=== PATIENT | female | born 1995 | race Caucasian/White ===

== ENCOUNTER 2024-12-05 14:00 | Emergency (ER) | payer OTHER, SELFPAY ==
--- OUTSIDE RECORDS SUMMARY | 2024-12-05 14:02 | XMS_ITS | Patient Health Record ---
Author Organization [employer] Address [address] [facility] [address] Harris. [address] [place] [address] Care Team Providers Care Washing And Screening Plant Supervisor Name Role Phone Tolu Banuelos Unavailable [phone] Jossie Jara Unavailable [phone] Allergies No Known Allergies Results Component Value Reference Range Notes CBC With Differential/Platel et Reviewed date:07/21/2024 12:07:46 PM Interpretation: Performing Lab:FRANCISCO, [employer] Culture Communication[place] [address] [address] , [place] [id number] [facility] Notes/Report: NON-FASTING; NON-FASTING; NON-FASTING; NON-FASTING; NON-FAST FASTING:NO COLLECTION KIT GIVEN TO PATIENT. PATIENT ADVISED FASTING: NO WHITE BLOOD CELL COUNT 8.7 3.8-10.8 Thousand/ uL RED BLOOD CELL COUNT 4.47 3.80-5.10 Million/uL HEMOGLOBIN 13.9 11.7-15.5 g/dL HEMATOCRIT 41.0 35.0-45.0 % MCV 91.7 80.0-100.0 fL MCH 31.1 27.0-33.0 pg MCHC 33.9 32.0-36.0 g/dL For adults, a slight decrease in the calculated MCHC value (in the range of 30 to 32 g/dL) is most likely not clinically significant; however, it should be interpreted with caution in correlation with other red cell parameters and the patient's clinical condition. RDW 12.8 11.0-15.0 % PLATELET COUNT 356 140-400 Thousand/uL MPV 9.2 7.5-12.5 fL ABSOLUTE NEUTROPHILS [phone] cells/uL ABSOLUTE LYMPHOCYTES 2018 850-3900 cells/uL ABSOLUTE MONOCYTES 600 200-950 cells/uL ABSOLUTE EOSINOPHILS 122 15-500 cells/uL ABSOLUTE BASOPHILS 44 0-200 cells/uL NEUTROPHILS 68 LYMPHOCYTES 23.2 MONOCYTES 6.9 EOSINOPHILS 1.4 BASOPHILS 0.5 CRP Reviewed date:07/21/2024 12:08:01 PM Interpretation: Performing Lab:[facility] [employer] [place] Communication[place] [address] [address] [place] [place] [id number] [facility] Notes/Report: NON-FASTING; NON-FASTING; NON-FASTING; NON-FASTING; NON-FAST FASTING:NO COLLECTION KIT GIVEN TO PATIENT. PATIENT ADVISED FASTING: NO C-REACTIVE PROTEIN <5.0 <8.0 mg/L Pathology Report (Not yet re viewed by provider) Interpretation: Performing Lab: Notes/Report: DIAGNOSES A. Duodenum , Biopsy: -Duodenal mucosa with no diagnostic abnormality. -Normal villous architecture; no evidence of Celiac sprue. -Alcian blue/PAS stain to identify gastric foveolar metaplasia and Whipple's disease is negative; no parasites are seen. CLINICAL HISTORY Heartburn. Abdominal bloating. GROSSING DESCRIPTION A. The specimen is received in a Formalin-filled container labeled with the patient's name and designated Duodenum It contains 2 fragments of garnett tissue that measure 3x2x1 and 3x2x1 mm. The specimen was entirely submitted into a single cassette for processing. MICROSCOPIC DESCRIPTION Complete 100 microscopic examination is performed. The findings are included in the diagnosis rendered. Specimen A was evaluated with H&E stain. Specimen A was evaluated with Alcian Blue PAS stain. Textual Pathology Report SEE NOTES CMP: COMPLETE METABOLIC PANE L Reviewed date:07/21/2024 12:10:07 PM Interpretation: Performing Lab:[facility] [employer] Culture CommunicationJessica Ville [id number] Administration [place] [id number] [facility] Notes/Report: NON-FASTING; NON-FASTING; NON-FASTING; NON-FASTING; NON-FAST FASTING:NO COLLECTION KIT GIVEN TO PATIENT. PATIENT ADVISED FASTING: NO GLUCOSE 91 65-139 mg/dL Non-fasting reference interval UREA NITROGEN (BUN) 15 7-25 mg/dL CREATININE 0.86 0.50-0.97 mg/dL EGFR 93 > OR = 60 mL/min/1.73m2 BUN/CREATININE RATIO SEE NOTE: 6-22 (calc) Not Reported: BUN and Creatinine are within reference range. SODIUM 139 135-146 mmol/L POTASSIUM 4.5 3.5-5.3 mmol/L CHLORIDE 106 98-110 mmol/L CARBON DIOXIDE 25 20-32 mmol/L CALCIUM 9.0 8.6-10.2 mg/dL PROTEIN, TOTAL 6.7 6.1-8.1 g/dL ALBUMIN 4.1 3.6-5.1 g/dL GLOBULIN 2.6 1.9-3.7 g/dL (calc) ALBUMIN/GLOBULIN RATIO 1.6 1.0-2.5 (calc) BILIRUBIN, TOTAL 0.6 0.2-1.2 mg/dL ALKALINE PHOSPHATASE 50 31-125 U/L AST 20 10-30 U/L ALT 39 6-29 U/L Immunoglobulin A, Qn, Serum Reviewed date:07/21/2024 12:08:08 PM Interpretation: Performing Lab:KISHA [employer] Culture Communication-[id number] Gilda [id number] Dariel Holliday MD Notes/Report: NON-FASTING; NON-FASTING; NON-FASTING; NON-FASTING; NON-FAST FASTING:NO COLLECTION KIT GIVEN TO PATIENT. PATIENT ADVISED FASTING: NO IMMUNOGLOBULIN A 106 47-310 mg/dL TSH Reviewed date:07/21/2024 12:07:54 PM Interpretation: Performing Lab:FRANCISCO [employer] Culture CommunicationCox [id number] [facility]twtRI[address] Dariel Holliday Notes/Report: NON-FASTING; NON-FASTING; NON-FASTING; NON-FASTING; NON-FAST FASTING:NO COLLECTION KIT GIVEN TO PATIENT. PATIENT ADVISED FASTING: NO TSH 2.67 Reference Range > or = 20 Years 0.40-4.50 Ranges First trimester 0.26-2.66 Second trimester 0.55-2.73 Third trimester 0.43-2.91 ENDOMYSIAL ANTIBODY SCR (IGA ) W/REFL TO TITER Reviewed date:07/21/2024 12:08:14 PM Interpretation: Performing Lab:GLORIA [employer] Culture Communication-Mata [id number] Javier Santos, Mata [id number] Demetrio Cordero Notes/Report: NON-FASTING; NON-FASTING; NON-FASTING; NON-FASTING; NON-FAST FASTING:NO COLLECTION KIT GIVEN TO PATIENT. PATIENT ADVISED FASTING: NO ENDOMYSIAL ANTIBODY SCR (IGA ) W/REFL TO TITER NEGATIVE NEGATIVE TISSUE TRANSGLUTAMINASE AB, IGA Reviewed date:07/21/2024 12:08:22 PM Interpretation: Performing Lab:GLORIA, [facility] [id number], [place]ata VickZujhNW[address] Demetrio Cordero Notes/Report: NON-FASTING; NON-FASTING; NON-FASTING; NON-FASTING; NON-FAST FASTING:NO COLLECTION KIT GIVEN TO PATIENT. PATIENT ADVISED FASTING: NO TISSUE TRANSGLUTAMINASE AB, IGA <1.0 Value Interpretation ----- <15.0 Antibody not detected > or = 15.0 Antibody detected Reason For Referral No Information Medications Medication SIG (Take, Route, Frequency, Duration) Notes Start Date End Date Status Xulane Active OTC/Vitamins Ashwaganda, Beef Organs Active Social History Tobacco Use: Social History Observation Description Date Details (start date - stop date) Never Smoker NA - NA Tobacco Control (Standard) Question Answer Notes Tobacco use: Nonsmoker Problems Problem Type SNOMED Code ICD Code Onset Dates Problem Status W/U Status Risk Notes Problem Nausea (007436267) Nausea (R11.0) Active confirmed She has chronic nausea without vomiting. She does take regular Tylenol and ibuprofen several times a week. Symptoms did not improve with pantoprazole. Differential diagnosis includes gastritis, peptic ulcer, gallbladder disease, nonulcer dyspepsia, or others. Problem Flatulence, eructation and gas pain (945385942) Bloating (R14.0) Active confirmed Chronic abdominal bloating unrelieved with stooling. She had a negative celiac test. She admits that she forgot to complete the H. pylori test that was ordered. Differential diagnosis includes H. pylori, food sensitivities, constipation predominant IBS, or others. Problem [id number] Irritable bowel syndrome with constipation (K58.1) Active confirmed She started taking MiraLAX and fiber, but continues to only move her bowels 2-3 times a week. This is slightly improved from only going once a week. Will have her begin a trial of Linzess. Problem Mucus in stool (981530391) Mucus in stool (R19.5) Active confirmed She has seen small amounts of mucus in the stool. Will have her submit a lactoferrin to evaluate for signs of inflammation. Problem 704296412 Acid reflux (K21.9) Active confirmed She has chronic reflux. She just completed 8 weeks of pantoprazole, but did not have any significant improvement. Will schedule an upper endoscopy to further evaluate. Problem Constipation alternates with diarrhea (175667929) Alternating constipation and diarrhea (R19.8) Active confirmed She fluctuates between constipation and loose stools. She will often go up to a week without a bowel movement followed by a day of several loose and large bowel movements. Differential diagnosis includes IBS, SIBO, or others. Vital Signs Height 70 in 08/31/2024 Weight 173 lbs 08/31/2024 BMI 24.82 kg/m2 08/31/2024 Procedures Procedure Date Ordered Date Performed Result Body Sit e EGD 08/31/2024 N/A Encounters Encounter Location Date Provider Diagnosis [facility], [address] [place] [address] 07/09/2024 Jossie Jara Bloating R14.0 ; Aci d reflux K21.9 ; Nausea R11.0 ; Alternating constipation and diarrhea R19.8 and Mucus in stool R19.5 [facility], [address] [place] [address] 08/31/2024 Jossie Jara Acid reflux K21.9 ; Nausea R11.0 ; Bloating R14.0 ; Irritable bowel syndrome with constipation K58.1 and Elevated liver enzymes R74.8 [facility] [address] [place] [address] 09/16/2024 Tolu Banuelos Heartburn R12 ; Esophagitis K20.90 and Bloating R14.0 [facility], [address] [place] [address] 07/21/2024 Jossie Jara [facility], [address] [place] [address] 08/31/2024 Tolu Banuelos Assessments Encounter Date Diagnosis (ICD Code) Assessment Notes Treatment Notes Treatment Clinical Notes Section Notes 07/09/2024 Bloating (ICD-10 - R14.0) She has chronic abdominal bloating. Symptoms have been unrelieved with diet changes. She tends to struggle with constipation. Differential diagnosis includes constipation predominant IBS, food sensitivities, celiac disease, SIBO, H. pylori, or others. 07/09/2024 Acid reflux (ICD-10 - K21.9) She has acid reflux on a fairly regular basis and is currently using Tums as needed. She has used Prilosec in the past when her symptoms were more severe. 08/31/2024 Nausea (ICD-10 - R11.0) She has chronic nausea without vomiting. She does take regular Tylenol and ibuprofen several times a week. Symptoms did not improve with pantoprazole. Differential diagnosis includes gastritis, peptic ulcer, gallbladder disease, nonulcer dyspepsia, or others. 08/31/2024 Acid reflux (ICD-10 - K21.9) She has chronic reflux. She just completed 8 weeks of pantoprazole, but did not have any significant improvement. Will schedule an upper endoscopy to further evaluate. 09/16/2024 Heartburn (ICD-10 - R12) 09/16/2024 Esophagitis (ICD-10 - K20.90) 09/16/2024 Bloating (ICD-10 - R14.0) 08/31/2024 Bloating (ICD-10 - R14.0) Chronic abdominal bloating unrelieved with stooling. She had a negative celiac test. She admits that she forgot to complete the H. pylori test that was ordered. Differential diagnosis includes H. pylori, food sensitivities, constipation predominant IBS, or others. 07/09/2024 Nausea (ICD-10 - R11.0) She complains of nausea without vomiting. Differential diagnosis includes gastritis, peptic ulcer, gallbladder disease, nonulcer dyspepsia, or others. 08/31/2024 Irritable bowel syndrome with constipation (ICD-10 - K58.1) She started taking MiraLAX and fiber, but continues to only move her bowels 2-3 times a week. This is slightly improved from only going once a week. Will have her begin a trial of Linzess. 07/09/2024 Alternating constipation and diarrhea (ICD-10 - R19.8) She fluctuates between constipation and loose stools. She will often go up to a week without a bowel movement followed by a day of several loose and large bowel movements. Differential diagnosis includes IBS, SIBO, or others. 07/09/2024 Mucus in stool (ICD-10 - R19.5) She has seen small amounts of mucus in the stool. Will have her submit a lactoferrin to evaluate for signs of inflammation. 08/31/2024 Elevated liver enzymes (ICD-10 - R74.8) Blood work in July showed a slightly elevated ALT of 39. Will have her repeat a hepatic panel today. 07/09/2024 Other After my visit with Ms. Alvarado, I recommend the followin. She will obtain labs including CBC, CMP, CRP, TSH, and celiac. 2. She will submit stool studies for lactoferrin and H. Pylori. 3. She will begin taking Pantoprazole 40 mg daily for acid reflux. Reviewed the medication profile and potential side effects. 4. She will begin a regimen of MiraLax 1 capful daily and fiber supplement. She may adjust the dose as needed. If she does not have good results we'll consider a trial of Linzess 72 mcg daily. 5. She will follow up in the office in 8 weeks. 6. For ongoing symptoms, we'll consider further evaluation with endoscopy/colonos copy versus SIBO test. 08/31/2024 Other After my visit with Mr. Alvarado, I recommend the followin. Given her ongoing reflux, nausea, and bloating despite 8 weeks of PPI, will schedule EGD to further evaluate. The procedure and its risks, benefits, alternatives, and indications were discussed with the patient. She verbalizes understanding and wishes to proceed. 2. She was given samples of Linzess 145 mcg to take daily. Reviewed the medication profile and potential side effects. She will notify me if she would like a prescription sent to her pharmacy. 3. She will repeat a hepatic panel. If liver enzymes remain elevated, we'll consider US of the liver and additional blood work. 4. Further thoughts to follow. Plan Of Treatment Pending Test Test Name Order Date EGD 08/31/2024 HELICOBACTER PYLORI AG, EIA, STOOL 07/09 LACTOFERRIN, QN, STOOL 07/09/2024 Hepatic Function 08/31/2024 Pathology Report 09/16/2024 Insurance Providers Payer Name Payer Address Payer Phone Subscriber Number Group Number Insured Name Patient Relationship to Insured Coverage Start Date Coverage End Date [facility] Choice/ choice Plus [id number] [address] [address] [place] [address] [id number] Elli Alvarado Self - patient is the insured Medical (General) History Medical History History ICD Code Migraine Headaches Surgical History Surgery Date(Month/Year) Tonsillectomy
--- OUTSIDE RECORDS SUMMARY | 2024-12-05 14:02 | XMS_ITS | Clinical Summary ---
Author Organization [facility] [employer] Address [address] [place] [address] Care Team Providers Care Network Liaison Name Role Phone Unavailable Primary Care Provider Unavailabl e Source Comments [facility],non-owned Affiliates and Associated Physician Practices is amultiple site organization consisting of ambulatory clinics and hospital sitesin [place], [place], [place] and [place]. This disclosure is being madepursuant to the Care Everywhere program and may not contain all informatio navailable regarding this patient. Last updated 17.[facility] Social History Tobacco Use Types Packs/Day Years Used Date Smoking Tobacco: Never Assessed Comments Unknown Sex and Gender Information Value Date Recorded Sex Assigned at Not on file Legal Sex Female 10:32 AM CDT Gender Identity Not on file Sexual Orientation Not on file Plan of Treatment Health Maintenance Due Date Last Done Comments HIV SCREENING 2008 HEPATITIS C SCREENING 12/07/2011 DTAP/TDAP/TD VACCINES (1 - Tdap) 2012 HEPATITIS B VACCINE (1 of 3 - 19+ 3-dose series) 2012 PAP SMEAR 2014 HPV VACCINE (1 - 3-dose SCDM series) 2020 DEPRESSION SCREENING 03/03/2024 COVID-19 VACCINE ( - 2023-2 5 season) 2024 INFLUENZA VACCINE (#1) 2024 ZOSTER VACCINE (1 of 2) 12/12/2043 HIB VACCINE Aged Out No longer eligi ble based on patient's age to complete this topic MENINGOCOCCAL (Group B) VACC INE SHARED DECISION-MAKING Aged Out No longer eligibl e based on patient's age to complete this topic MENINGOCOCCAL GROUPS A/C/Y/W VACCINE Aged Out No longer eligible b ased on patient's age to complete this topic PNEUMOCOCCAL VACCINE Aged Out No long er eligible based on patient's age to complete this topic Insurance [facility] Address: [facility] [address] [place] [address]
[2024-12-05 14:07] VITALS: BP 116/79; PULSE 100; RESP 20; TEMP 37.1; O2SAT 100
--- NOTE | 2024-12-05 15:02 | ED_ITS ---
HPI - Skin/Abscess/Foreign Bdy General Chief complaint: Skin/Abscess/Foreign Body Stated complaint: Insect Bite Time Seen by Provider: 12/05/24 14:50 Source: patient and RN notes reviewed Mode of arrival: ambulatory Limitations: no limitations History of Present Illness HPI narrative: 28-year-old female presents Express Care complaining of possible insect bites. 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 She reports she was bit inside the Slider is a her shorts area which extends up to her abdomen and reports some bites on her lower legs. Patient denies any fevers, body aches and chills, nausea vomiting, or other symptoms. Patient reports a very pruritic. Patient said this started few days ago noticed more the yesterday. Patient has not seen any bed bugs, lice, fleas, or been exposed any scabies. Patient tried hydrocortisone cream without relief. Related Data Allergies Allergy/AdvReac Type Severity Reaction Status Date / Time No Known Allergies Allergy Mild Verified 12/05/24 14:12 Review of Systems Review of Systems: CONSTITUTIONAL: Denies fever, chills, or sweats. EYES: Denies visual changes, redness, or discharge. ENT: Denies rhinorrhea, congestion, sore throat, or otalgia. CARDIOVASCULAR: Denies chest pain, palpitations, or edema. RESPIRATORY: Denies cough or dyspnea. GASTROINTESTINAL: Denies abdominal pain, nausea, vomiting, or diarrhea. GENITOURINARY: Denies dysuria or hematuria. SKIN: Positive for insect bites and itching. MUSCULOSKELETAL: Denies back pain, joint pain, or myalgia. NEUROLOGIC: Denies headache, numbness, or weakness. PSYCHIATRIC: Denies anxiety or depression. All other systems reviewed are negative, except as documented in HPI. PMFSH Social History Social History Smoking status: Never smoker Second hand tobacco smoke exposure: No Alcohol intake: never Comments At the time of my signature, I reviewed and agree with the nursing past medical, surgical, social, and family history. There is no relevant family history pertinent to the patient complaint. Exam Narrative: GENERAL: This is a well-nourished, well-developed adult, in no apparent distress. They are non ill-appearing, nontoxic appearing. HEAD: normocephalic, atraumatic. EYES: Sclera clear/white. Conjunctiva normal. Vision is grossly intact. Extraocular movements intact EARS: External ears normal, Hearing grossly intact. NOSE: External nose normal THROAT: Mucous membranes moist, NECK: Neck supple, CARDIOVASCULAR: Regular rate and rhythm RESPIRATORY: Respiratory rate normal, respiratory effort nonlabored, no respiratory distress SKIN: Erythematous papular vesicular lesions scattered throughout the patient's lower abdomen, inner thighs, and lower legs scantly. They are pruritic, there nontender, no exudate, no area of fluctuance, no induration, no surrounding cellulitis. NEURO: awake, alert, and oriented to person, place and time. There were no obvious focal neurologic abnormalities. EXTREMITIES: No joint tenderness, effusion, or edema noted. Course Course Emergency Course: Portions of this record may have been created with voice recognition software Level of Care: Express Care Visit Vital Signs Vital signs: Vital Signs Temperature 98.8 F 12/05/24 14:07 Pulse Rate 100 12/05/24 14:07 Respiratory Rate 20 12/05/24 14:07 Blood Pressure 116/79 12/05/24 14:07 Pulse Oximetry 100 12/05/24 14:07 Oxygen Delivery Room Air 12/05/24 14:07 Temperature 98.8 F 12/05/24 14:07 Pulse Rate 100 12/05/24 14:07 Respiratory Rate 20 12/05/24 14:07 Blood Pressure 116/79 12/05/24 14:07 Pulse Oximetry 100 12/05/24 14:07 Oxygen Delivery Room Air 12/05/24 14:07 Reviewed MDM - Skin/Abscess/Foreign Bdy MDM Narrative Medical decision making narrative: Appears patient has insect bites. Prescribe triamcinolone cream recommend supportive therapy. My patients he is worried of any lice infestation [id number] lice shampoo. Discussed physical exam findings. Advised supportive measures and signs/symptoms to go to the ER. Pt is appropriate for outpt treatment and f/u. Differential Diagnosis Differential diagnosis: Likely viral exanthem, dermatophytosis, cellulitis, eczema and insect bites Critical Care Time Critical Care Time Critical Care Time: No Discharge Plan Discharge Clinical Impression: Insect bite Qualifiers: Encounter type: initial encounter Site of insect bite: unspecified site Qualified Code(s): W57.XXXA - Bitten or stung by nonvenomous insect and other nonvenomous arthropods, initial encounter Patient Disposition: Home Condition: Stable Instructions: Insect Bite or Sting (ED) Additional Instructions: Use the Kenalog cream as directed. Avoid scratching the balm says you may increase the risk of infection. You may use calamine lotion, camphor, Benadryl cream as needed for itchiness symptoms. You may also take Zyrtec or Claritin as needed for allergy or itchiness symptoms. Follow instructions on the bottle. Follow-up PCP in 3-5 days. If you develop any worsening redness, swelling, discharge, fevers, breathing problems, or any other concerns please go to the ER immediately. Patient Language: Amharic Prescriptions: New triamcinolone acetonide 0.1 % cream 1 applic topical BID 7 Days Qty: 15 0RF Rx Instructions: Apply to the affected area, do not use longer than 2 weeks. Follow-up/Referrals: PHYSICIAN,INDEPENDENT CROP CONSULTANT [Primary Care Provider, Internal Medicine] Time of Disposition: 15:00
== END 2024-12-05 15:03 | disposition home or self-care (01) ==
DX: S30.861A Insect bite (nonvenomous) of abdominal wall, initial encounter (principal); S70.362A Insect bite (nonvenomous), left thigh, initial encounter; S70.361A Insect bite (nonvenomous), right thigh, initial encounter; S80.862A Insect bite (nonvenomous), left lower leg, initial encounter; S80.861A Insect bite (nonvenomous), right lower leg, initial encounter; W57.XXXA Bitten or stung by nonvenomous insect and other nonvenomous arthropods, initial encounter
CPT/HCPCS: 99203; G0463